=== PATIENT | female | born 1975 | race American Indian/Alaskan Native ===

== ENCOUNTER 2020-11-11 08:14 | Emergency (ER) | payer SELFPAY ==
[2020-11-11 08:31] VITALS: BP 108/78
--- NOTE | 2020-11-11 10:43 | Emergency Department Report ---
ED General Adult HPI - General Chief complaint: Dental/Oral Stated complaint: DENTAL PAIN, SEIZURES Time Seen by Provider: 11/11/20 10:38 Source: patient Mode of arrival: Ambulatory Limitations: No Limitations - History of Present Illness Initial comments: 45-year-old female patient with history of myoclonic seizures presents to the emergency department with complaints of dental pain since last week. Patient recently relocated to the area and does not have a dentist. Pain is localized to the left upper molar. She is not currently on antibiotics. Denies fever, chills, dysphagia, sore throat, voice changes, neck stiffness, pain with extraocular movements. Denies all other complaints at this time. - Related Data Previous Rx's Medication Instructions Recorded Last Taken Type Naproxen 500 mg PO BID #20 tablet 11/11/20 Unknown Rx Nystas/Diphen/Xyl Visc/Mylanta 30 ml MM Q4H PRN #1 bottle 11/11/20 Unknown Rx [Magic Mouthwash] Penicillin Vk [Veetids TAB] 500 mg PO QID 7 Days tablet 11/11/20 Unknown Rx Allergies Allergy/AdvReac Type Severity Reaction Status Date / Time magnesium sulfate Allergy Unknown Verified 11/11/20 08:27 metoclopramide [From Reglan] Allergy Unknown Verified 11/11/20 08:27 sulfamethoxazole Allergy Unknown Verified 11/11/20 08:27 [From Bactrim] trimethoprim [From Bactrim] Allergy Unknown Verified 11/11/20 08:27 ED Review of Systems ROS: Stated complaint: DENTAL PAIN, SEIZURES Other details as noted in HPI Other: GENERAL: Negative for fever. ENT: Positive for dental pain. CARDIOVASCULAR: Negative for chest pain. PULMONARY: Negative for shortness of breath. GASTROINTESTINAL: Negative for abdominal pain. MUSCULOSKELETAL: Negative for back pain. NEUROLOGICAL: Negative for headache. INTEGUMENTARY: Negative for rash. ED Past Medical Hx - Past Medical History Previous Medical History?: Yes Hx Hypertension: Yes Hx Seizures: Yes Hx Psychiatric Treatment: Yes ([place] for major depression) Additional medical history: Lupus, Fibromyalgia, Graves disease post radiation - Surgical History Past Surgical History?: Yes Additional Surgical History: right foot, D & C - Social History Smoking Status: Current Every Day Smoker Substance Use Type: None - Medications Home Medications: Home Medications Medication Instructions Recorded Confirmed Last Taken Type Naproxen 500 mg PO BID #20 tablet 11/11/20 Unknown Rx Nystas/Diphen/Xyl Visc/Mylanta 30 ml MM Q4H PRN #1 bottle 11/11/20 Unknown Rx [Magic Mouthwash] Penicillin Vk [Veetids TAB] 500 mg PO QID 7 Days tablet 11/11/20 Unknown Rx ED Physical Exam - General Limitations: No Limitations - Other Other exam information: General: Awake, appropriately interactive, no acute distress. Dental: Oral mucosa is moist. Tenderness to palpation along the left upper molar. The gingiva appear normal. No fluctuance or evidence of periapical abscess. Sublingual, submental, and submandibular spaces all soft, without edema. Soft tissue swelling noted to the left maxillary area without overlying erythema or warmth. No evidence for maxillary or buccal space abscess. No trismus. Patient is speaking in full sentences and handling secretions without difficulty. No trismus. Neck: Supple. Full range of motion intact. Cardiovascular: Normal peripheral perfusion. Pulmonary: No respiratory distress. Patient is speaking normally without use of accessory muscles. Skin: No apparent rashes or lesions. Neurological: No facial asymmetry. Speech is clear. Follows commands. Patient is alert and oriented. Musculoskeletal: Moves all four extremities spontaneously with normal range of motion. Psych: Cooperative. Appropriate mood and affect. ED Course Vital Signs 11/11/20 08:28 Temperature 98.4 F Pulse Rate 88 Respiratory 20 Rate Blood Pressure 108/78 O2 Sat by Pulse 99 Oximetry ED Medical Decision Making - Medical Decision Making Differential diagnosis including but not limited to: dental abscess, Manuel's angina, necrotizing gingivitis, dental caries Patient presents to the emergency department with complaints of nontraumatic dental pain. She is afebrile, hemodynamically stable, tolerating oral intake, handling secretions without difficulty, no respiratory distress. No clinical evidence to suggest airway obstruction or systemic bacterial infection warranting further diagnostic work-up on an emergent basis at this time. Patient will be discharged home with antibiotics, appropriate analgesics, and referral to local dental clinic. Emphasized the importance of calling the dentist tomorrow to schedule outpatient follow-up. Patient expressed understanding and is agreeable to plan of care. Strict return precautions provided. Additionally, patient reports a history of myoclonic seizures, for which she takes Keppra. She is not currently exhibiting any seizure activity. Patient recently relocated to the area and has not yet established care with a neurologist. She has been referred to a local neurology practice for outpatient follow-up. Repeat exam is unremarkable and benign. History, exam, diagnostic testing, and current condition do not suggest worrisome pathology to warrant further testing, continued ED treatment, admission, or surgical evaluation at this point. Given the low probability of a significant medical illness, it would be more likely to result in harm than benefit to perform further testing at this stage. Discussed findings, presumptive diagnosis, need for follow-up and specific signs/symptoms that should prompt immediate return to the emergency department. Instructions were explained in detail to the patient in addition to giving written discharge information. Patient expressed understanding and was given the opportunity to ask questions, all of which were satisfactorily answered prior to discharge home. Critical care attestation.: If time is entered above; I have spent that time in minutes in the direct care of this critically ill patient, excluding procedure time. ED Disposition Clinical Impression: Odontalgia, History of seizure disorder Disposition: TO HOME OR SELFCARE Is pt being admited?: No Does the pt Need Aspirin: No Condition: Stable Instructions: Diet and Dental Disease Additional Instructions: Take Tylenol every 4 hours as needed for pain. Take Naprosyn twice daily with food as needed for pain. Use Magic mouthwash as needed for pain. Take Penicillin with food as directed. Follow-up with Dr. Castillo, neurologist, as soon as possible. Call tomorrow to schedule an appointment. Follow-up with dentist this week. Call tomorrow to schedule an appointment. See referral information below. Return to the emergency department immediately for new or worsening symptoms. Specifically, return to the emergency department immediately for fever, difficulty swallowing, difficulty breathing, or any other concerns. Prescriptions: Nystas/Diphen/Xyl Visc/Mylanta [Magic Mouthwash] 30 ml MM Q4H PRN #1 bottle PRN Reason: dental pain Naproxen 500 mg PO BID #20 tablet Penicillin Vk [Veetids TAB] 500 mg PO QID 7 Days tablet Referrals: DENIS CASTILLO MD [Staff Physician] - 3-5 Days [facility] [Outside] - 3-5 Days [facility] [Outside] - 3-5 Days Time of Disposition: 10:45
== END 2020-11-11 10:58 | disposition home or self-care (01) ==
LOC: ED 08:14
DX: K08.89 Other specified disorders of teeth and supporting structures (principal); G40.909 Epilepsy, unspecified, not intractable, without status epilepticus; I10 Essential (primary) hypertension; F17.200 Nicotine dependence, unspecified, uncomplicated; Z98.890 Other specified postprocedural states; Z88.8 Allergy status to other drugs, medicaments and biological substances; Z88.2 Allergy status to sulfonamides; Z79.899 Other long term (current) drug therapy
CPT/HCPCS: 99282

== ENCOUNTER 2020-11-19 09:56 | Emergency (ER) | payer MEDICARE ==
[2020-11-19 10:12] VITALS: BP 113/82
--- NOTE | 2020-11-19 11:19 | XRay Report ---
Right knee radiograph, 3 views HISTORY: Pain COMPARISON: None FINDINGS: No acute fracture or malalignment. No significant arthritis. No joint capsular distention. Soft tissues are unremarkable. IMPRESSION: No acute process. Signer Name: Jose Campos MD Signed: 11/19/2020 11:15 AM Workstation Name: [email or web address]
--- NOTE | 2020-11-19 11:40 | Emergency Department Report ---
ED Lower Extremity HPI - General Chief Complaint: Extremity Injury, Lower Stated Complaint: RT KNEE PAINS Time Seen by Provider: 11/19/20 10:31 Source: patient, EMS Mode of arrival: Wheelchair Limitations: Physical Limitation - History of Present Illness Initial Comments: This is a 45-year-old female nontoxic, well nourished in appearance, no acute signs of distress presents to the ED with c/o of right knee pain. Patient stated that she had a ground-level trip and fall to the right knee at work yesterday. Patient denies any other injuries or trauma. Patient denies any numbness, tingling, fever, chills, nausea, vomiting, chest pain, shortness of breath, headache, stiff neck. Patient denies any joint swelling or joint redness. Patient denies decreased range of motion. Patient stated has decreased gait due to pain. MD Complaint: knee injury -: days(s) Injury: Knee: Right Place: work Severity: mild Severity scale (0 -10): 8 Improves With: immobilization Worsens With: weight bearing, movement, palpation Context: fall Associated Symptoms: able to partially bear weight. denies: snap/pop sensation, swelling, numbness, tingling, unable to bear weight - Related Data Previous Rx's Medication Instructions Recorded Last Taken Type Naproxen 500 mg PO BID #20 tablet 11/11/20 Unknown Rx Nystas/Diphen/Xyl Visc/Mylanta 30 ml MM Q4H PRN #1 bottle 11/11/20 Unknown Rx [Magic Mouthwash] Penicillin Vk [Veetids TAB] 500 mg PO QID 7 Days tablet 11/11/20 Unknown Rx Acetaminophen [Acetaminophen 8 650 mg PO Q8H PRN #12 tablet.er 11/19/20 Unknown Rx Hour] Allergies Allergy/AdvReac Type Severity Reaction Status Date / Time magnesium sulfate Allergy Unknown Verified 11/11/20 08:27 metoclopramide [From Reglan] Allergy Unknown Verified 11/11/20 08:27 sulfamethoxazole Allergy Unknown Verified 11/11/20 08:27 [From Bactrim] trimethoprim [From Bactrim] Allergy Unknown Verified 11/11/20 08:27 ED Review of Systems ROS: Stated complaint: RT KNEE PAINS Other details as noted in HPI Comment: All other systems reviewed and negative Constitutional: denies: chills, fever Eyes: denies: eye pain, eye discharge, vision change ENT: denies: ear pain, throat pain Respiratory: denies: cough, shortness of breath, wheezing Cardiovascular: denies: chest pain, palpitations Endocrine: no symptoms reported Gastrointestinal: denies: abdominal pain, nausea, diarrhea Genitourinary: denies: urgency, dysuria, discharge Musculoskeletal: denies: back pain, joint swelling, arthralgia Skin: denies: rash, lesions Neurological: denies: headache, weakness, paresthesias Psychiatric: denies: anxiety, depression Hematological/Lymphatic: denies: easy bleeding, easy bruising ED Past Medical Hx - Past Medical History Previous Medical History?: Yes Hx Hypertension: Yes Hx Seizures: Yes Hx Psychiatric Treatment: Yes ([place] for major depression) Additional medical history: Lupus, Fibromyalgia, Graves disease post radiation - Surgical History Past Surgical History?: Yes Additional Surgical History: right foot, D & C - Social History Smoking Status: Current Every Day Smoker Substance Use Type: None - Medications Home Medications: Home Medications Medication Instructions Recorded Confirmed Last Taken Type Naproxen 500 mg PO BID #20 tablet 11/11/20 Unknown Rx Nystas/Diphen/Xyl Visc/Mylanta 30 ml MM Q4H PRN #1 bottle 11/11/20 Unknown Rx [Magic Mouthwash] Penicillin Vk [Veetids TAB] 500 mg PO QID 7 Days tablet 11/11/20 Unknown Rx Acetaminophen [Acetaminophen 8 650 mg PO Q8H PRN #12 tablet.er 11/19/20 Unknown Rx Hour] ED Physical Exam - General Limitations: Physical Limitation General appearance: alert, in no apparent distress - Head Head exam: Present: atraumatic, normocephalic - Eye Eye exam: Present: normal appearance - Neck Neck exam: Present: normal inspection, full ROM - Respiratory Respiratory exam: Absent: respiratory distress - Cardiovascular Cardiovascular Exam: Present: regular rate - GI/Abdominal GI/Abdominal exam: Present: soft. Absent: distended, tenderness - Extremities Exam Extremities exam: Present: full ROM, tenderness, normal capillary refill. Absent: pedal edema, joint swelling, calf tenderness - Expanded Lower Extremity Exam Right Hip exam: Present: normal inspection, full ROM, external rotation, internal rotation, pelvic stability. Absent: tenderness, swelling, abrasion, laceration, ecchymosis, deformity, crepidus, dislocation, erythema, shortening Upper Leg exam: Present: normal inspection, full ROM. Absent: tenderness, abrasion, laceration, ecchymosis, deformity, crepidus, dislocation, erythema Knee exam: Present: full ROM, tenderness, abrasion (Small superficial), full knee extension. Absent: swelling, laceration, ecchymosis, deformity, crepidus, dislocation, erythema, pain w/ pronation/supination, posterior draw sign, pain/laxity with valgus, pain/laxity with varus Lower Leg exam: Present: normal inspection, full ROM. Absent: tenderness, swelling, abrasion, laceration, ecchymosis, deformity, crepidus, dislocation, erythema, palpable cord, Black's sign Ankle exam: Present: normal inspection, full ROM. Absent: tenderness, swelling Foot/Toe exam: Present: normal inspection, full ROM. Absent: tenderness, swelling Neuro vascular tendon exam: Present: no vascular compromise Gait: Positive: observed and limited by pain 1 - Small abrasion noted here - Back Exam Back exam: Present: normal inspection, full ROM. Absent: tenderness, CVA tenderness (R), CVA tenderness (L), muscle spasm, paraspinal tenderness, vertebral tenderness, rash noted - Neurological Exam Neurological exam: Present: alert, oriented X3 - Psychiatric Psychiatric exam: Present: normal affect, normal mood - Skin Skin exam: Present: warm, dry, intact, normal color. Absent: rash ED Course Vital Signs 11/19/20 10:11 Temperature 97.9 F Pulse Rate 77 Respiratory 12 Rate Blood Pressure 113/82 O2 Sat by Pulse 98 Oximetry - Reevaluation(s) Reevaluation #1: 11/19/20 11:38 Patient is speaking in full sentences with no signs of distress noted. ED Lower Extremity MDM - Radiology Data [facility] [address] [place] [address] XRay Report Signed Patient: PIETRO LEOS MR#: [id number] 9 : 1975 Acct:[id number] Age/Sex: 45 / F ADM Date: 11/19/20 Loc: ED Attending Dr: Ordering Physician: CHEYANNE MALONEY NP Date of Service: 11/19/20 Procedure(s): XR knee 3V RT Accession Number(s): [id number] cc: CHEYANNE MALONEY NP Fluoro Time In Minutes: Right knee radiograph, 3 views HISTORY: Pain COMPARISON: None FINDINGS: No acute fracture or malalignment. No significant arthritis. No joint capsular distention. Soft tissues are unremarkable. IMPRESSION: No acute process. Signer Name: Amari Campos MD Signed: 11/19/2020 11:15 AM Workstation Name: [email or web address] Transcribed By: JS Dictated By: AMARI CAMPOS MD Electronically Authenticated By: AMARI CAMPOS MD Signed Date/Time: 11/19/201114 DD/ 14 TD/TT: - Medical Decision Making This is a 45-year-old female that presents with right knee strain. Patient is stable and was examined by me. I referred patient to an orthopedic doctor for further evaluation for possible MRI. X-ray has been obtained and dictated by the radiologist. Patient is notified of the x-ray report with noted by the patient. Patient does have normal gait with slight tenderness and no joint swelling. No ecchymosis. no joint redness or swelling. Not warm to touch. No signs of cellulites present. Patient received a knee immobilize and crutches and was educated by RN how to use crutches. Patient was instructed to RICE therapy. Patient is discharged with Tylenol. At time of discharge, the patient does not seem toxic or ill in appearance. No acute signs of distress noted. Patient agrees to discharge treatment plan of care. No further questions noted by the patient. Critical care attestation.: If time is entered above; I have spent that time in minutes in the direct care of this critically ill patient, excluding procedure time. ED Disposition Clinical Impression: Fall Qualifiers: Encounter type: initial encounter Qualified Code(s): W19.XXXA - Unspecified fall, initial encounter Strain of right knee Qualifiers: Encounter type: initial encounter Qualified Code(s): S86.911A - Strain of unspecified muscle(s) and tendon(s) at lower leg level, right leg, initial encounter Disposition: DC-01 TO HOME OR SELFCARE Is pt being admited?: No Does the pt Need Aspirin: No Condition: Stable Instructions: Crutch Use, Adult, [id number], RICE Therapy for Routine Care of Injuries, [id number], How to Use a Knee Immobilizer Additional Instructions: Follow-up with a orthopedic doctor in 3-5 days or if symptoms worsen and c ontinue return to emergency room as soon as possible. No physical activity that extremity until cleared by orthopedic doctor Prescriptions: Acetaminophen [Acetaminophen 8 Hour] 650 mg PO Q8H PRN #12 tablet.er PRN Reason: Pain , Severe (7-10) Referrals: PRIMARY CARE, [Referring] - 3-5 Days DARRYL BEE MD [Staff Physician] - 3-5 Days Forms: Work/School Release Form(ED) Time of Disposition: 11:43
== END 2020-11-19 12:36 | disposition home or self-care (01) ==
LOC: ED 09:56
DX: S86.911A Strain of unspecified muscle(s) and tendon(s) at lower leg level, right leg, initial encounter (principal); I10 Essential (primary) hypertension; M79.7 Fibromyalgia; F17.200 Nicotine dependence, unspecified, uncomplicated; Z86.69 Personal history of other diseases of the nervous system and sense organs; Z88.8 Allergy status to other drugs, medicaments and biological substances; Z88.2 Allergy status to sulfonamides; Z79.899 Other long term (current) drug therapy; W18.39XA Other fall on same level, initial encounter; Y93.89 Activity, other specified; Y92.89 Other specified places as the place of occurrence of the external cause; Y99.8 Other external cause status
CPT/HCPCS: 99284